=== PATIENT | female | born 1975 | race Caucasian/White ===

== ENCOUNTER 2016-06-21 10:30 | Outpatient (RCR) | payer OTHER | END 2016-07-19 | disposition home or self-care (01) | LOC: PT 10:30 | PROVIDERS: ATTEND Orthopaedic Surgery | DX: M75.31 Calcific tendinitis of right shoulder (principal); M75.101 Unspecified rotator cuff tear or rupture of right shoulder, not specified as traumatic; M75.41 Impingement syndrome of right shoulder; M25.611 Stiffness of right shoulder, not elsewhere classified ==